=== PATIENT | female | born 1945 | race Caucasian/White ===

== ENCOUNTER 2016-08-14 12:11 | Emergency (ER) | payer MEDICARE, OTHER ==
[2016-08-14 12:12] VITALS: BMI 29.0
--- NOTE | 2016-08-14 14:35 | C.PDOC ---
History Of Present Illness 70 yr old female with PMHx of diabetes, hyperlipidemia and hypertension, presents to the ER with complaints of low back pain, radiating down to the right leg since morning, associated with dysuria. States never happen before. Patient also reports of feeling light headed, dizzy and vision changes since morning. Patient denies fever, chest pain, SOB, nausea, vomiting, abdominal pain , diarrhea, constipation, weakness or numbness. Time Seen by Provider: 08/14/16 13:08 Chief Complaint (Nursing): Hip Pain History Per: Patient History/Exam Limitations: no limitations Onset/Duration Of Symptoms: Sudden Onset (since morning ) Past Medical History Reviewed: Historical Data, Nursing Documentation, Vital Signs Vital Signs: Last Vital Signs Temp 97.5 F L 08/14/16 14:45 Pulse 67 08/14/16 17:09 Resp 18 08/14/16 17:09 BP 162/90 H 08/14/16 17:09 Pulse Ox 95 08/14/16 18:20 - Medical History PMH: Anxiety, Arthritis, Asthma, CAD, CHF, Diabetes, Gall Bladder Disease, HTN, Hypercholesterolemia, TIA Surgical History: Cholecystectomy, Coronary Stent - [facility] Procedures COLONOSCOPY (11/23/13) ENDO EXCISION/DEST OF LESION OR TISSUE OF STOMACH (05/18/13) ENDO RECTUM POLYPECTOMY (03/15/14) ENDOSC POLYPECTOMY OF LG INTEST (03/15/14) EXCISION INTERVERT DISC (12/27/14) Family History: States: No Known Family Hx - Social History Hx Tobacco Use: No Hx Alcohol Use: No Hx Substance Use: No - Immunization History Hx Tetanus Toxoid Vaccination: No Hx Influenza Vaccination: No Hx Pneumococcal Vaccination: No Review Of Systems Except As Marked, All Systems Reviewed And Found Negative. Constitutional: Negative for: Fever Eyes: Positive for: Vision Change Cardiovascular: Positive for: Light Headedness. Negative for: Chest Pain Respiratory: Negative for: Shortness of Breath Gastrointestinal: Negative for: Nausea, Vomiting, Abdominal Pain, Diarrhea, Constipation Genitourinary: Positive for: Dysuria Musculoskeletal: Positive for: Back Pain (Low back pain radiating down the right leg ) Neurological: Positive for: Dizziness. Negative for: Weakness, Numbness Physical Exam - Physical Exam Appears: Non-toxic, No Acute Distress Skin: Warm, Dry, No Rash Head: Atraumatic, Normacephalic Oral Mucosa: Moist Neck: Supple Chest: Symmetrical, No Tenderness Cardiovascular: Rhythm Regular, No Murmur Respiratory: Normal Breath Sounds, No Rales, No Rhonchi, No Stridor, No Wheezing Gastrointestinal/Abdominal: Normal Exam, Soft, No Tenderness, No Guarding, No Rebound Extremity: Normal ROM, Tenderness (Diffuse bilateral tenderness to palpation to legs and feet.) Neurological/Psych: Oriented x3, Normal Speech, Normal Motor ED Course And Treatment ECG: Interpreted By Me ECG Rhythm: Sinus Rhythm, Nonspecific Changes Rate From EC O2 Sat by Pulse Oximetry: 95 Progress Note: Pt reports feeling lightheaded, fingerstick done - 27 pt given oj +sugar with resolution of the symptoms. Pt then had her own donnut, sugar remained stable Medical Decision Making Medical Decision Making: PLAN: * EKG * Urinalysis * ketorolac Pt reports feeling better post meds, UA normal Plan dc home nsaid Clinic f/u Disposition Counseled Patient/Family Regarding: Diagnosis, Need For Followup - Disposition Referrals: [facility] [Outside] Disposition: HOME/ ROUTINE Disposition Time: 16:55 Condition: GOOD Prescriptions: Naproxen [Naprosyn] 1 tab PO BID PRN #25 tab PRN Reason: Pain Instructions: Acute Low Back Pain (ED) Print Language: KHMER - Clinical Impression Clinical Impression: Back pain
[2016-08-14 14:54] VITALS: RESP 18; TEMP 97.5
[2016-08-14 15:52] LABS: RBC URINE < 1 /hpf (0-3); URINE BACTERIA RARE (<OCC); URINE BILIRUBIN NEGATIVE (NEGATIVE); URINE BLOOD NEGATIVE (NEGATIVE); URINE COLOR Straw (YELLOW); URINE GLUCOSE (UA) NORMAL (Normal); URINE KETONE NEGATIVE (NEGATIVE); URINE LEUKOCYTE ESTERASE NEG Leu/uL (Negative); URINE PROTEIN NEGATIVE (NEGATIVE); URINE UROBILINOGEN NORMAL mg/dL (0.2-1.0)
[2016-08-14 17:10] VITALS: BP 162/90; PULSE 67
[2016-08-14 18:19] VITALS: O2SAT 95
--- NOTE | 2016-08-15 12:12 | CARD ---
APPROVED REPORT EKG Measurement Heart [id number] <Conclusion> Normal sinus rhythm Minimal voltage criteria for LVH, may be normal variant Nonspecific T wave abnormality Abnormal ECG
== END 2016-08-14 17:10 | disposition home or self-care (01) ==
LOC: C.ER 12:11
DX: M54.5 Low back pain (principal)
CPT/HCPCS: 81001; 82948; 93005; 96374; 99285; J1885

== ENCOUNTER 2016-09-30 13:20 | Emergency (ER) | payer MEDICARE, OTHER ==
[2016-09-30 13:21] VITALS: BMI 29.0
[2016-09-30 14:33] VITALS: RESP 18
[2016-09-30 15:59] VITALS: BP 144/84; PULSE 61; TEMP 98.4; O2SAT 98
--- NOTE | 2016-09-30 16:03 | C.PDOC ---
History Of Present Illness A 70 year old female with a Hx of HTN and Diabetes, presents to the ER c/o general body pain and back pain that radiates to the hips that began yesterday. Patient notes tingling of the right arm and bilateral lower extremities. Patient reports dizziness but denies nausea, vomiting, chest pain, SOB, trauma, or any other complaints. Time Seen by Provider: 09/30/16 14:03 Chief Complaint (Nursing): Upper Extremity Problem/Injury History Per: Patient History/Exam Limitations: no limitations Onset/Duration Of Symptoms: Days Current Symptoms Are (Timing): Still Present Quality: "Pain" Severity: Mild Exacerbating Factor(s): Movement Recent travel outside of the [place]: No Additional History Per: Patient Past Medical History Reviewed: Historical Data, Nursing Documentation, Vital Signs Vital Signs: Last Vital Signs Temp 98.4 F 09/30/16 15:59 Pulse 61 09/30/16 15:59 Resp 18 09/30/16 15:59 BP 144/84 09/30/16 15:59 Pulse Ox 98 09/30/16 16:20 - Medical History PMH: Anxiety, Arthritis, Asthma, CAD, CHF, Diabetes, Gall Bladder Disease, HTN, Hypercholesterolemia, TIA Denies: Chronic Kidney Disease Surgical History: Cholecystectomy, Coronary Stent - [facility] Procedures COLONOSCOPY (11/23/13) ENDO EXCISION/DEST OF LESION OR TISSUE OF STOMACH (05/18/13) ENDO RECTUM POLYPECTOMY (03/15/14) ENDOSC POLYPECTOMY OF LG INTEST (03/15/14) EXCISION INTERVERT DISC (12/27/14) Family History: States: Unknown Family Hx - Social History Hx Tobacco Use: No Hx Alcohol Use: No Hx Substance Use: No - Immunization History Hx Tetanus Toxoid Vaccination: No Hx Influenza Vaccination: No Hx Pneumococcal Vaccination: No Review Of Systems Except As Marked, All Systems Reviewed And Found Negative. Constitutional: Negative for: Other (Trauma) Cardiovascular: Negative for: Chest Pain Respiratory: Negative for: Shortness of Breath Gastrointestinal: Negative for: Nausea, Vomiting Musculoskeletal: Positive for: Back Pain, Other (General body pain. Hip pain) Neurological: Positive for: Dizziness, Other (Tingling of the right arm and bilateral lower extremities) Physical Exam - Physical Exam Appears: Non-toxic, No Acute Distress, Other (Appears obese) Skin: Warm, Dry Head: Atraumatic, Normacephalic Eye(s): bilateral: Normal Inspection, PERRL, EOMI Cardiovascular: Rhythm Regular, No Murmur Respiratory: Normal Breath Sounds, No Rales, No Rhonchi, No Wheezing Gastrointestinal/Abdominal: Soft, No Tenderness Neurological/Psych: Oriented x3, Normal Speech, Normal Cognition, Normal Cranial Nerves, Other (No focal deficit) Gait: Steady (Ambulatory) ED Course And Treatment O2 Sat by Pulse Oximetry: 98 (RA) Pulse Ox Interpretation: Normal Medical Decision Making Medical Decision Making: Impression: 70 y/o female c/o gen. body pain and back pain radiating to the hips. Plans: -Tylenol -Motrin -Reassess and disposition Disposition Counseled Patient/Family Regarding: Need For Followup - Disposition Referrals: Adam Millan MD [Medical Doctor] - Disposition: HOME/ ROUTINE Disposition Time: 16:02 Condition: STABLE Prescriptions: Naproxen [Naprosyn] 1 tab PO BID PRN #25 tab PRN Reason: Pain Forms: Gen Discharge Inst Chinese - POA Present On Arrival: None - Clinical Impression Clinical Impression: Musculoskeletal pain - Scribe Statement The provider has reviewed the documentation as recorded by the Scribe Randy weiss All medical record entries made by the Scribe were at my direction and personally dictated by me. I have reviewed the chart and agree that the record accurately reflects my personal performance of the history, physical exam, medical decision making, and the department course for this patient. I have also personally directed, reviewed, and agree with the discharge instructions and disposition.
--- NOTE | 2016-09-30 16:09 | C.PDOC ---
History Of Present Illness A 70 year old female wit a Hx of HTN and Diabetes, presents to the ER c/o general body pain and back pain that radiates to the hips that began yesterday. Patient also notes tingling of the right arm and bilateral lower extremities. Patient reports dizziness but denies nausea, vomiting, chest pain, SOB, trauma, or any other complaints. Time Seen by Provider: 09/30/16 14:03 Chief Complaint (Nursing): Upper Extremity Problem/Injury History Per: Patient History/Exam Limitations: no limitations Onset/Duration Of Symptoms: Days Current Symptoms Are (Timing): Still Present Quality Of Discomfort: "Pain" Severity: Mild Exacerbating Factor(s): Movement Recent travel outside of the [place]: No Additional History Per: Patient Past Medical History Reviewed: Historical Data, Nursing Documentation, Vital Signs Vital Signs: Last Vital Signs Temp 98.4 F 09/30/16 15:59 Pulse 61 09/30/16 15:59 Resp 18 09/30/16 15:59 BP 144/84 09/30/16 15:59 Pulse Ox 98 09/30/16 16:03 - Medical History PMH: Anxiety, Arthritis, Asthma, CAD, CHF, Diabetes, Gall Bladder Disease, HTN, Hypercholesterolemia, TIA Denies: Chronic Kidney Disease Surgical History: Cholecystectomy, Coronary Stent - [facility] Procedures COLONOSCOPY (11/23/13) ENDO EXCISION/DEST OF LESION OR TISSUE OF STOMACH (05/18/13) ENDO RECTUM POLYPECTOMY (03/15/14) ENDOSC POLYPECTOMY OF LG INTEST (03/15/14) EXCISION INTERVERT DISC (12/27/14) Family History: States: Unknown Family Hx - Social History Hx Tobacco Use: No Hx Alcohol Use: No Hx Substance Use: No - Immunization History Hx Tetanus Toxoid Vaccination: No Hx Influenza Vaccination: No Hx Pneumococcal Vaccination: No Review Of Systems Except As Marked, All Systems Reviewed And Found Negative. Constitutional: Negative for: Other (Trauma) Cardiovascular: Negative for: Chest Pain Respiratory: Negative for: Shortness of Breath Gastrointestinal: Negative for: Nausea, Vomiting Musculoskeletal: Positive for: Back Pain, Other (General body pain. Hip pain) Neurological: Positive for: Dizziness, Other (Tingling of the right arm and bilateral lower extremities) Physical Exam - Physical Exam Appears: Non-toxic, No Acute Distress, Other (Appears obese) Skin: Warm, Dry Head: Atraumatic, Normacephalic Eye(s): bilateral: Normal Inspection, PERRL, EOMI Cardiovascular: Rhythm Regular, No Murmur Respiratory: Normal Breath Sounds, No Rales, No Rhonchi, No Wheezing Gastrointestinal/Abdominal: Soft, No Tenderness Neurological/Psych: Oriented x3, Normal Speech, Normal Cognition, Normal Cranial Nerves, No Other (No focal deficit) Gait: Steady (Ambulatory) ED Course And Treatment O2 Sat by Pulse Oximetry: 98 (RA) Pulse Ox Interpretation: Normal Medical Decision Making Medical Decision Making: Impression: 70 y/o female c/o gen. body pain and back pain radiating to the hips. Plans: -Tylenol -Motrin -Reassess and disposition Disposition - Disposition Referrals: Adam Millan MD [Medical Doctor] - Disposition: HOME/ ROUTINE Prescriptions: Naproxen [Naprosyn] 1 tab PO BID PRN #25 tab PRN Reason: Pain Forms: Gen Discharge [facility] - Clinical Impression Clinical Impression: Musculoskeletal pain
== END 2016-09-30 16:05 | disposition home or self-care (01) ==
LOC: C.ER 13:20
DX: M79.1 Myalgia (principal); I10 Essential (primary) hypertension; E11.9 Type 2 diabetes mellitus without complications

== ENCOUNTER 2018-06-19 11:48 | Emergency (ER) | payer MEDICARE, OTHER ==
[2018-06-19 11:55] VITALS: BMI 30.9
--- NOTE | 2018-06-19 12:57 | C.PDOC ---
History Of Present Illness 72 y/o female, w/PMhx of anxiety, HTN, DM, CAD, chronic back pain presents to the ER complaining of acute onset of right lower back pain which has been present for the past 2 days. Patient reports that the pain radiates up to the right thoracic spine and down the right leg. Pt has been seen here for similar symptoms in the past. She did not take any medications for the pain. Denies having fever, chills, headache, dizziness, neck pain, CP, SOB, weakness, numbness, parasthesia, bowel/ bladder incontinence, or saddle anesthesia. Time Seen by Provider: 06/19/18 12:39 Chief Complaint (Nursing): Back Pain History Per: Patient History/Exam Limitations: no limitations Onset/Duration Of Symptoms: Days Current Symptoms Are (Timing): Still Present Severity: Moderate Past Medical History Reviewed: Historical Data, Nursing Documentation, Vital Signs Vital Signs: Last Vital Signs Temp 98.7 F 06/19/18 11:56 Pulse 63 06/19/18 11:56 Resp 17 06/19/18 11:56 BP 183/74 H 06/19/18 11:56 Pulse Ox 98 06/19/18 11:56 - Medical History PMH: Anxiety, Arthritis, Asthma, CAD, CHF, Diabetes, Gall Bladder Disease, HTN, Hypercholesterolemia, TIA Denies: Chronic Kidney Disease Surgical History: Cholecystectomy, Coronary Stent - [facility] Procedures COLONOSCOPY (11/23/13) ENDO EXCISION/DEST OF LESION OR TISSUE OF STOMACH (05/18/13) ENDO RECTUM POLYPECTOMY (03/15/14) ENDOSC POLYPECTOMY OF LG INTEST (03/15/14) EXCISION INTERVERT DISC (12/27/14) Family History: States: No Known Family Hx - Social History Hx Tobacco Use: No Hx Alcohol Use: No Hx Substance Use: No - Immunization History Hx Tetanus Toxoid Vaccination: No Hx Influenza Vaccination: No Hx Pneumococcal Vaccination: No Review Of Systems Except As Marked, All Systems Reviewed And Found Negative. Constitutional: Negative for: Fever, Chills Cardiovascular: Negative for: Chest Pain Respiratory: Negative for: Shortness of Breath Genitourinary: Negative for: Dysuria, Incontinence, Hematuria Musculoskeletal: Positive for: Back Pain. Negative for: Neck Pain Neurological: Negative for: Headache Physical Exam - Physical Exam Appears: Non-toxic, No Acute Distress Skin: Normal Color, Warm, Dry Head: Atraumatic, Normacephalic Eye(s): bilateral: Normal Inspection, PERRL, EOMI Nose: Normal Oral Mucosa: Moist Neck: Normal, Normal ROM, No Midline Cervical Tenderness, No Paracervical Tenderness, Supple Chest: Symmetrical Cardiovascular: Rhythm Regular Respiratory: Normal Breath Sounds, No Rales, No Rhonchi, No Wheezing Gastrointestinal/Abdominal: Soft, No Tenderness Back: No Vertebral Tenderness, Paraspinal Tenderness (mild right thoracic and lumbar paraspinal tenderness), Straight Leg Raising (positiver right leg), Other (surgical scar over lumbar spine) Extremity: Normal ROM, Capillary Refill (<2s) Extremity: Bilateral: Atraumatic, Normal Color And Temperature, Normal ROM Pulses: Left Dorsalis Pedis: Normal, Right Dorsalis Pedis: Normal Neurological/Psych: Oriented x3, Normal Speech, Normal Motor, Normal Sensation Gait: Steady ED Course And Treatment O2 Sat by Pulse Oximetry: 98 (RA) Pulse Ox Interpretation: Normal - Other Rad A-Uks-Yimtuamb Spine X-Ray: Viewed By Me, Read By Radiologist Interpretation: Date of service: 06/19/2018. HISTORY: back pain. COMPARISON: No prior. FINDINGS: BONES: Alignment maintained. No fracture. Anterior spondylosis most accentuated apparently T9-10. DISC SPACES: Normal. SOFT TISSUES: Normal. OTHER FINDINGS: None. IMPRESSION: Thoracic spondylosis. No fracture appreciated. No subluxation noted K-Iua-Pforwj Spine X-Ray: Viewed By Me, Read By Radiologist Interpretation: Date of service: 06/19/2018. PROCEDURE: Radiographs of the Lumbar Spine. HISTORY: back pain. COMPARISON: No prior. FINDINGS: BONES: Normal alignment. No listhesis. No fracture. 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 L4-5 marginal osteophytosis. DISC SPACES: Rudimentary and/or narrowed at L5-S1. Narrowed at L4-5. OTHER FINDINGS: Atherosclerotic vascular calcifications present. Stool retention noted. Right upper quadrant post cholecystectomy clips. IMPRESSION: No lumbar fracture or significant appearing subluxation. Senescent changes and developmental variations as noted above. Other findings as above. Medical Decision Making Medical Decision Making: Plan: --Toradol IM --UA --X-Ray- Lumbar Spine --X-Ray- Thoracic Spine Updates: UA unremarkable Patient left AMA before official reading of X-Rays and before pain was adequately controlled. The patient declines to have further medical evaluation and treatment and wishes to leave the Emergency Department. This action is against my medical advice to the patient, and with informed refusal. The patient was told that evaluation and treatment are necessary and a full explanation of the rationale was given. The risks of leaving were explained to the patient and include, but are not limited to, worsening of known or currently unknown conditions, permanent disability and from undiagnosed or untreated conditions The patient has the capacity to make this informed decision and understands the clinical situation and my explanation of the risks of leaving. The patient voluntarily accepts these risks, and a signed AMA form documenting our conversation was obtained. The patient was given the opportunity to ask questions and reconsider. The patient was encouraged to return to the Emergency Department at any time for further care. Conversation conducted with interpreter translator Ifeoma. Advised PMD and orthopedic followup with return if she wishes to be re-evaluated or if new/worsening symptoms develop. Patient verbalized understanding and states she will followup as instructed. Disposition - Disposition Referrals: [facility] at [facility] [Outside] Raoul Nickerson III, MD [Staff Provider] - Disposition: AGAINST MEDICAL ADVICE Disposition Time: 14:00 Condition: GUARDED Additional Instructions: Regrese a la mandy de emergencias si desea ser reevaluado. Naproxeno diario segn sea necesario para el dolor. Seguimiento con ortopedia en 2 bro. Seguimiento con mdico primario en 2 bro. Prescriptions: Naproxen [Naprosyn] 500 mg PO DAILY PRN #14 tablet PRN Reason: Pain, Moderate (4-7) Instructions: Sciatica Exercises, Leaving Against Medical Advice Forms: [employer] (Faroese) Print Language: ICELANDIC - Clinical Impression Clinical Impression: Back pain - PA / [employer] MAN / Resident Statement MD/DO has reviewed & agrees with the documentation as recorded. - Scribe Statement The provider has reviewed the documentation as recorded by the Scribe Josh Syed Provider Attestation All medical record entries made by the Scribe were at my direction and personally dictated by me. I have reviewed the chart and agree that the record accurately reflects my personal performance of the history, physical exam, medical decision making, and the department course for this patient. I have also personally directed, reviewed, and agree with the discharge instructions and disposition.
[2018-06-19 13:36] LABS: SQUAMOUS EPITHIAL 2 /hpf (0-5); URINE BACTERIA RARE (<OCC); URINE BILIRUBIN NEGATIVE (NEGATIVE); URINE BLOOD NEGATIVE (NEGATIVE); URINE CLARITY Clear (Clear); URINE COLOR Yellow (YELLOW); URINE GLUCOSE (UA) NORMAL (Normal); URINE LEUKOCYTE ESTERASE NEG Leu/uL (Negative); URINE PROTEIN NEGATIVE (NEGATIVE); URINE UROBILINOGEN NORMAL mg/dL (0.2-1.0)
[2018-06-19 14:27] VITALS: BP 168/73; PULSE 61; RESP 18; TEMP 97.6
--- NOTE | 2018-06-19 15:08 | RAD ---
Date of service: 06/19/2018 PROCEDURE: Radiographs of the Lumbar Spine. HISTORY: back pain COMPARISON: No prior. FINDINGS: BONES: Normal alignment. No listhesis. No fracture. 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 L4-5 marginal osteophytosis. DISC SPACES: Rudimentary and/or narrowed at L5-S1. Narrowed at L4-5. OTHER FINDINGS: Atherosclerotic vascular calcifications present. Stool retention noted. Right upper quadrant post cholecystectomy clips. IMPRESSION: No lumbar fracture or significant appearing subluxation. Senescent changes and developmental variations as noted above. Other findings as above.
--- NOTE | 2018-06-19 15:10 | RAD ---
Date of service: 06/19/2018 HISTORY: back pain COMPARISON: No prior. FINDINGS: BONES: Alignment maintained. No fracture. Anterior spondylosis most accentuated apparently T9-10 DISC SPACES: Normal. SOFT TISSUES: Normal. OTHER FINDINGS: None. IMPRESSION: Thoracic spondylosis. No fracture appreciated. No subluxation noted
[2018-06-19 16:04] VITALS: O2SAT 98
== END 2018-06-19 14:23 | disposition left against medical advice (07) ==
LOC: C.ER 11:48
DX: M54.5 Low back pain (principal)
CPT/HCPCS: 72070; 72100; 81001; 96372; 99285; J1885

== ENCOUNTER 2018-07-11 07:47 | Outpatient (CLI) | payer MEDICARE, OTHER | END 2018-07-11 07:48 | disposition home or self-care (01) | LOC: C.MRIC 07:47 | DX: M54.16 Radiculopathy, lumbar region (principal) ==

== ENCOUNTER 2018-08-25 07:28 | Outpatient (CLI) | payer MEDICARE, OTHER | END 2018-08-25 07:29 | disposition home or self-care (01) | LOC: C.RADH 07:28 ==